=== PATIENT | male | born 1990 | race Caucasian/White ===

== ENCOUNTER → 2024-11-24 | Outpatient (CLI) | payer BC, SELFPAY ==
[2024-11-24 17:27] LABS: Collection Type, Urine Clean Catch; Squamous Epithelial Cell,Urine 0 /hpf (0-5)
[2024-11-24 18:06] LABS: Basophils % (Auto) 1 % (0-2.5); Eosinophils # (Auto) 0.1 Thou/mm3 (0.0-0.5); Eosinophils % (Auto) 1 % (0-10); Hematocrit 45.7 % (41.0-53.0); Hemoglobin 15.1 g/dL (13.5-16.0); Immature Granulocytes % (Auto) 0 % (0-0); Immature Granulocytes Auto 0.02 Thou/mm3 (0.00-0.00); Lymphocytes # (Auto) 2.6 Thou/mm3 (1.0-4.8); Lymphocytes % (Auto) 31 % (10-50); Mean Corpuscular Hemoglobin 28.7 pg (25.0-35.0); Mean Corpuscular Volume 87 fL (80-100); Monocytes # (Auto) 0.6 Thou/mm3 (0.0-0.8); Monocytes % (Auto) 7 % (0-12); Neutrophils % (Auto) 60 % (37-80); Nucleated Red Blood Cell % 0 /100 WBC (0); Platelet Count 257 Thou/mm3 (140-440); RDW Standard Deviation 42.5 fL (35.1-43.9); Red Blood Count 5.27 Miln/mm3 (4.50-5.90); White Blood Count 8.3 Thou/mm3 (3.8-10.6)
[2024-11-24 18:18] LABS: Glucose Estimated Average 108 mg/dL (80-131); Hemoglobin A1C 5.4 % Hgb (4.8-6.0)
[2024-11-24 18:22] LABS: Alanine Aminotransferase 45 U/L (10-49); Albumin/Globulin Ratio 1.8 (1.2-2.2); Alkaline Phosphatase 83 U/L (46-116); Anion Gap 9 (7-16); Aspartate Amino Transferase 23 U/L (0-34); BUN/Creatinine Ratio 16 Ratio (12-20); Bilirubin,Total 0.5 mg/dL (0.3-1.2); Blood Urea Nitrogen 16 mg/dL (9-23); Calcium 10.3 mg/dL (8.3-10.6); Calcium (Corrected) 10.3 mg/dL (8.5-10.1); Carbon Dioxide 28.7 mMol/L (20.0-31.0); Cardiac Risk Estimate 4.4 RATIO (4.0-6.7); Chloride 101 mMol/L (98-107); Cholesterol 196 mg/dL (132-200); Globulin 2.8 gm/dL (2.3-3.5); Glucose 93 mg/dL (74-106); HDL Cholesterol 45 mg/dL (40-60); LDL Cholesterol,Calculated 127 mg/dL (0-130); Osmolality,Calculated 278 (275-295); Potassium 4.9 mMol/L (3.4-5.1); Sodium 139 mMol/L (136-145); Total Protein 7.8 gm/dL (5.7-8.2); Triglycerides 120 mg/dL (30-150); Uric Acid 8.4 mg/dL (3.7-9.2); eGFR > 60 See Note
[2024-11-24 18:31] LABS: Bacteria,Urine Rare; Bilirubin,Urine Negative (Negative); Blood,Urine Negative (Negative); Clarity,Urine Clear (Clear/Hazy); Color,Urine Lt-Yellow (Lt Yel-Yel); Culture Indicated,Urine Not Indicated; Glucose, Urine Negative (Negative); Ketones,Urine Negative (Negative); Leukocyte Esterase,Urine Negative (Negative); Nitrite,Urine Negative (Negative); PH,Urine 5.5 (5.0-7.0); Protein,Urine Negative (Neg - Trace); RBC,Urine 1 /hpf (0-3); Specific Gravity,Urine 1.023 (1.001-1.035); Urobilinogen,Urine Negative mg/dL (0.0-1.0); WBC,Urine 1 /hpf (0-5)
[2024-11-26 14:46] LABS: Vitamin D 25 Hydroxy Total 13.5 ng/mL (7.3-40.2)
== END | disposition home or self-care (01) ==
LOC: COPL 16:20
PROVIDERS: PCP Registered Nurse; Referring Provider Registered Nurse; Visit Provider Registered Nurse
DX: R79.89 Other specified abnormal findings of blood chemistry (principal); M10.00 Idiopathic gout, unspecified site
CPT/HCPCS: 36415; 80053; 80061; 81001; 82306; 83036; 84550; 85025

== ENCOUNTER → 2025-02-19 | Outpatient (CLI) | payer BC, SELFPAY ==
--- NOTE | 2025-02-19 09:30 | XR_ITS ---
Examination: Esophagram standard Fluoroscopy Upright PA chest single view Upright soft tissue lateral neck single view Exam date and time: February 19, 2025 0948 hours INDICATIONS:, preop bariatric surgery TECHNIQUE AND FINDINGS: Upright PA chest single view demonstrates normal heart size, no pneumonia or pulmonary edema Old fracture right clavicle Upright soft tissue lateral neck demonstrates normal epiglottis There is mild prevertebral soft tissue prominence, at the C5 level measuring up to 18 mm Patient swallowed thin barium with primary peristaltic esophageal waves noted Intermittent moderate gastroesophageal reflux No constricting esophageal lesion No stricture the gastroesophageal junction No esophageal ulcerations IMPRESSION: Mild cervical prevertebral soft tissue prominence, clinical correlation advised No active disease in the chest Intermittent moderate gastroesophageal reflux No constricting esophageal lesion
--- NOTE | 2025-02-19 10:00 | XR_ITS ---
Examination: Abdomen sonogram, complete Date and time of exam: February 19, 2025 0932 hours INDICATIONS: Diagnosis gout unspecified with chronic abdominal pain. Technique: Multiple real-time grayscale transabdominal sonographic images of the abdomen have been obtained. Findings: Negative for gallstones Gallbladder wall 0.38 cm no edema Common bile duct 0.4 cm Pancreatic head 2.1 cm Aorta not enlarged Liver 16.9 cm fatty infiltration Normal hepatopedal portal venous flow Patent IVC Right kidney 12.3 cm cortex 2.8 cm Midpole possible small solid mass 10 x 11 mm Left kidney 10.2 cm in the cortex 2.2 cm 7 mm calculus Spleen 14.3 cm IMPRESSION: Negative for gallstones Borderline thickening gallbladder wall, clinical correlation advised Fatty liver Recommend MRI abdomen kidneys follow-up pre and postcontrast to exclude 9 x 10 x 11 mm solid mass right kidney 7 mm left renal calculus
== END | disposition home or self-care (01) ==
PROVIDERS: Referring Provider Surgery; Visit Provider Surgery
DX: K82.8 Other specified diseases of gallbladder (principal); K76.0 Fatty (change of) liver, not elsewhere classified; N28.89 Other specified disorders of kidney and ureter; N20.0 Calculus of kidney
CPT/HCPCS: 74220; 76700; A4699

== ENCOUNTER 2025-04-08 10:25 | Day surgery (SDC) | payer BC, SELFPAY ==
[2025-04-07 13:42] VITALS: BMI 41.8
[2025-04-08] VITALS (8 sets, daily range): BP systolic 123–153; BP diastolic 86–117; PULSE 60–74; RESP 12–18; TEMP 37; O2SAT 95–99; BMI 41.8
[2025-04-08] MEDS: BENZOCAINE 20% (Hurricaine) SPRAY 1 DOSE TOP (12:12)
[2025-04-08] MEDS: SODIUM CHLORIDE 0.9% 500 ML 500 ML 20 ML IV (12:12)
[2025-04-08] MEDS: DiphenhydrAMINE INJ 50 MG/ML VIAL 25 MG IV (12:12)
[2025-04-08] MEDS: fentaNYL CIT INJ 50 mCg/ML AMP 2ML (ASD USE ONLY) IV (12:14)
[2025-04-08] MEDS: MIDAZOLAM INJ 1 MG/ML VIAL 2 ML (ASD USE ONLY) 2 MG IV (12:16)
== END 2025-04-08 13:10 | disposition home or self-care (01) ==
PROVIDERS: PCP Family Medicine; Referring Provider Specialist; Visit Provider Specialist
PROC: (CPT 43239; principal; 2025-04-08 11:45)
DX: Z01.818 Encounter for other preprocedural examination (principal); K20.90 Esophagitis, unspecified without bleeding; K29.70 Gastritis, unspecified, without bleeding; K29.50 Unspecified chronic gastritis without bleeding; K31.89 Other diseases of stomach and duodenum
CPT/HCPCS: 43239; J1200; J2250; J3010; J7040; A9270